=== PATIENT | female | born 1955 | race Hispanic/Latino ===

== ENCOUNTER 2016-12-02 16:41 | Outpatient (CLI) | payer BC ==
--- NOTE | 2016-12-02 17:17 | RAD ---
LEFT ANKLE 3 VIEWS: Date: 12/02/16 HISTORY: Left ankle pain and swelling. FINDINGS: Ankle mortise is intact. Mild osteophytosis is present. No acute fracture or dislocation evident. IMPRESSION: No acute osseous abnormalities are demonstrated. POS: ROSSY
== END 2016-12-02 16:42 | disposition home or self-care (01) ==
LOC: NAV RAD 16:41
PROVIDERS: ATTEND Family Medicine
DX: M25.572 Pain in left ankle and joints of left foot (principal)

== ENCOUNTER 2016-12-09 16:40 | Outpatient (CLI) | payer BC ==
[2016-12-09 17:10] LABS: #Eosinphils 0.3 thou/uL (0.0-0.7); #Lymphocytes 1.6 thou/uL (1.20-3.40); #Monocytes 0.4 thou/uL (0.11-0.59); #Neutrophils 4.2 thou/uL (1.40-6.50); %Basophils 0.7 % (0.0-1.0); %Eosinophils 4.6 % (0.0-10.0); %Lymphocytes 24.7 % (21.0-51.0); %Monocytes 5.8 % (0.0-10.0); Hematocrit 42.4 % (36.0-47.0); Mean Platelet Volume 7.2 fL (7.4-10.4); Red Blood Cell (RBC) Count 4.62 mill/uL (4.20-5.40); White Blood Cell (WBC) Count 6.6 thou/uL (4.8-10.8)
[2016-12-09 17:13] LABS: ALT (SGPT) 13 U/L (0-55); AST (SGOT) 19 U/L (5-34); Alkaline Phosphatase 89 U/L (40-150); Anion Gap 13 mmol/L (10-20); BUN (Urea Nitrogen) 15 mg/dL (9.8-20.1); Bilirubin, Total 0.3 mg/dL (0.2-1.2); Calc. Creatinine Clearance 0 mL/min (70-130); Calcium 9.1 mg/dL (7.8-10.44); Carbon Dioxide 26 mmol/L (23-31); Chloride 106 mmol/L (98-107); Estimated GFR-MDRD 76; Globulin 2.7 g/dL (2.4-3.5); LDL Cholesterol, Calculated 74 mg/dL; Protein, Total 6.5 g/dL (5.8-8.1)
[2016-12-09 17:22] LABS: Hemoglobin A1c 5.1 % (4.0-6.0)
== END 2016-12-09 16:41 | disposition home or self-care (01) ==
LOC: NAV SJFMSP 16:40
PROVIDERS: ATTEND Family Medicine
DX: Z00.00 Encounter for general adult medical examination without abnormal findings (principal)
CPT/HCPCS: 80053; 80061; 83036; 84439; 84443; 85025